=== PATIENT | female | born 1960 | race Native Hawaiian/Other Pacific Islander ===

== ENCOUNTER 2024-12-31 21:03 | Emergency (ER) | payer MEDICAID ==
[~2024-12-31] VITALS: Ht 152.4 cm; Wt 43.2 kg
[~2024-12-31 21:03] MED LIST: INSU3INS3 SQ; LOSA-381 PO; NEED-463 SQ
[2024-12-31 21:08] VITALS: TEMP 99.5
[2024-12-31 21:26] LABS: GLUCOMETER DEV NAME(LOC) ER.7; GLUCOSE,POINT OF CARE 307 MG/DL (70-110)
[2024-12-31 21:42] LABS: BASOPHILS % (AUTO) 0.5 % (0.0-2.0); EOSINOPHILS % (AUTO) 0.6 % (1.0-6.0); HEMATOCRIT 46.3 % (36-46); HEMOGLOBIN 15.5 g/dL (12.0-16.0); LYMPHOCYTES # (AUTO) 1.7 K/uL (1.0-4.8); LYMPHOCYTES % (AUTO) 19.9 % (22.0-44.0); MEAN CORPUSCULAR HGB CONC 33.5 G/dL (31.0-37.0); MEAN CORPUSCULAR VOLUME 90 fL (80-100); MONOCYTES # (AUTO) 0.4 K/uL (0.1-1.0); MONOCYTES % (AUTO) 5.1 % (2.0-9.0); NEUTROPHILS # (AUTO) 6.4 K/uL (1.8-7.7); NEUTROPHILS % (AUTO) 73.9 % (40.0-70.0); PLATELET COUNT (AUTO) 330 K/uL (150-450); RED BLOOD CELL COUNT(AUTO) 5.18 MIL/uL (4.00-5.20); RED CELL DISTRIBUTION WIDTH 13.4 % (11.5-14.5); WHITE BLOOD COUNT (AUTO) 8.6 K/uL (4.5-11.0)
[2024-12-31 21:55] LABS: ACETONE,BLOOD TRACE (NEGATIVE)
[2024-12-31 22:02] LABS: ANION GAP 10 mmol/L (8-16); CALCIUM, TOTAL 9.4 mg/dL (8.8-10.5); CARBON DIOXIDE 36 mmol/L (22-29); CHLORIDE 91 mmol/L (98-107); CREATININE 0.61 mg/dL (0.60-1.30); GLOMERULAR FILTR. RATE CALC > 60 mL/min (>60); GLUCOSE,RANDOM 352 mg/dL (70-110); LACTIC ACID 1.5 mmol/L (0.4-2.0); SODIUM SERUM 137 mmol/L (136-145); TROPONIN I-HIGH SENSITIVITY 5 ng/L (<51); UREA NITROGEN, BLOOD 16 mg/dL (7-18)
[2024-12-31 22:03] LABS: POTASSIUM 2.7 mmol/L (3.5-5.1)
[2024-12-31 22:23] LABS: ABG BASE EXCESS 10.5 mmol/L (-2.0-3.0); ABG HCO3 33.8 mmol/L (21.0-28.0); ABG METHEMOGLOBIN 0.5 % (0.0-1.5); ABG OXYGEN SATURATION 98.2 % (94.0-98.0); ABG OXYHEMOGLOBIN 96.7 % (94.0-98.0); ABG PCO2 38 mmHg (32.0-45.0); ABG TOTAL HEMOGLOBIN 15.4 G/dL (12.0-16.0); SOURCE, BLOOD GAS ARTERIAL; TEMPERATURE, FAHRENHEIT, BG 99.5 FAHREN (96.0-98.6)
[2024-12-31 22:24] LABS: ABG A-A DIFF O2 11.4 mmHg (10-20.0); ABG PH 7.557 (7.350-7.450); ALLEN TEST, BLOOD GAS POS; SITE, BLOOD GAS RT BRACHIAL
[2024-12-31] MEDS: SODIUM CHLORIDE 0.9% 1,000 ML IV ONE (22:31)
[2024-12-31] MEDS: ONDANSETRON HCL 4 MG/2 ML VIAL IVP ONE (22:32)
[2024-12-31] MEDS: INSULIN REGULAR, HUMAN 100 UNITS/ML IVP ONE (22:33)
[2024-12-31 23:12] LABS: APPEARANCE,URINE CLEAR (CLEAR); BILIRUBIN,URINE NEGATIVE (NEGATIVE); COLOR,URINE YELLOW (YELLOW); GLUCOSE, URINE (UA) >=1000 mg/dL (NEGATIVE); KETONES,URINE 80-100 mg/dL (NEGATIVE); LEUKOCYTE ESTERASE ,URINE LARGE (NEGATIVE); NITRATE,URINE NEGATIVE (NEGATIVE); OCCULT BLOOD,URINE TRACE (NEGATIVE); PROTEIN,URINE TRACE mg/dL (NEGATIVE); UROBILINOGEN,URINE <=1.0 mg/dL (<=1.0)
[2024-12-31 23:17] LABS: BACTERIA,URINE Few /HPF (None Seen); RBC,URINE 0-2 /HPF (0-2); SQUAMOUS EPITHELIAL CELL,UR Few /LPF (None Seen)
[2024-12-31] MEDS: POTASSIUM CHL 10 MEQ/WATER 50 ML IV SCH (23:26)
[2024-12-31] MEDS ORDERED: IOHEXOL 350 MG/ML 100 ML VIAL ONE (23:29)
[2024-12-31] MEDS ORDERED: SODIUM CHLORIDE 0.9% 100 ML ONE (23:29)
[2024-12-31] MEDS ORDERED: MAGNESIUM OXIDE 400 MG TABLET PO PRN (23:30)
[2024-12-31] MEDS ORDERED: MAGNESIUM SULFATE 4 GM/WATER 100 ML IV PRN (23:30)
[2024-12-31] MEDS ORDERED: MORPHINE SULFATE 2 MG/ML SYRINGE IVP PRN (23:30)
[2024-12-31] MEDS ORDERED: ZOLPIDEM TARTRATE 5 MG TABLET PO PRN (23:30)
[2024-12-31] MEDS ORDERED: ONDANSETRON HCL 4 MG/2 ML VIAL IVP PRN (23:30)
[2024-12-31] MEDS ORDERED: BISACODYL 10 MG RECTAL RECTAL SUPPOSITORY PR PRN (23:30)
[2024-12-31] MEDS ORDERED: POTASSIUM CHL 10 MEQ/WATER 50 ML IV PRN (23:30)
[2024-12-31] MEDS ORDERED: MAGNESIUM HYDROXIDE SUSPENSION 30 ML UDCUP PO PRN (23:30)
[2024-12-31] MEDS ORDERED: ACETAMINOPHEN 325 MG TABLET PO PRN (23:30)
[2024-12-31] MEDS ORDERED: POTASSIUM CHLORIDE 20 MEQ ER TABLET PO PRN (23:30)
[2024-12-31] MEDS ORDERED: ALBUTEROL SULFATE 2.5 MG/0.5 ML NEB SOLUTION NEB PRN (23:30)
[2024-12-31] MEDS ORDERED: MAGNESIUM SULFATE 2 GM/WATER 50 ML IV PRN (23:30)
[2024-12-31] MEDS ORDERED: IPRATROPIUM BROMIDE 0.5 MG/2.5 ML NEB SOLUTION NEB PRN (23:30)
[2024-12-31] MEDS ORDERED: HYDROCODONE/ACETAMINOPHEN 5-325 MG TABLET PO PRN (23:30)
[2024-12-31] MEDS ORDERED: DEXTROSE 50%-WATER 25 GM/50 ML SYRINGE IVP PRN (23:45)
[2024-12-31] MEDS ORDERED: INSULIN LISPRO 100 UNITS/ML SQ PRN (23:45)
[2025-01-01 00:21] LABS: GLUCOMETER DEV NAME(LOC) ERT.7; GLUCOSE,POINT OF CARE 279 MG/DL (70-110)
[2025-01-01] MEDS: PANTOPRAZOLE SODIUM 40 MG/VIAL IVP SCH (00:47)
[2025-01-01] MEDS: CefTRIAXone 1 GM/DEXTROSE 50 ML IV ONE (00:48)
[2025-01-01] MEDS: HEPARIN SODIUM,PORCINE 5,000 UNITS/ML VIAL SQ SCH (00:49)
[2025-01-01] MEDS: INSULIN GLARGINE,HUM.REC.ANLOG 100 UNITS/ML SQ ONE (00:55)
[2025-01-01 03:11] LABS: GLUCOMETER DEV NAME(LOC) ERT.7; GLUCOSE,POINT OF CARE 267 MG/DL (70-110)
[2025-01-01 08:49] VITALS: BP 110/75; PULSE 61; RESP 16; O2SAT 98
[2025-01-01 09:12] LABS: ALBUMIN 2.8 g/dL (3.4-5.0); BILIRUBIN,DIRECT 0.1 mg/dL (0.00-0.20); BILIRUBIN,TOTAL 0.4 mg/dL (0.1-1.0); TOTAL PROTEIN, SERUM 6.8 g/dL (6.4-8.2)
[2025-01-01] MEDS: INSULIN GLARGINE,HUM.REC.ANLOG 100 UNITS/ML SQ SCH (09:30)
[2025-01-01 09:35] LABS: GLUCOMETER DEV NAME(LOC) ERT.7; GLUCOSE,POINT OF CARE 243 MG/DL (70-110)
== END 2025-01-01 10:39 | disposition admitted as inpatient to this hospital (09) ==
LOC: EMS 21:06 → CANBEDREQ 01-01 08:23 → EMS 01-01 10:39
DX: E86.0 Dehydration (principal); E11.65 Type 2 diabetes mellitus with hyperglycemia; N39.0 Urinary tract infection, site not specified; K56.699 Other intestinal obstruction unspecified as to partial versus complete obstruction; I10 Essential (primary) hypertension; Z79.4 Long term (current) use of insulin; Z79.899 Other long term (current) drug therapy
CPT/HCPCS: 99285; 70450; 96375 ×2; 71045 ×2; 96361 ×2; 80048; 80076; 81001; 82009; 82040; 82962; 83690; 83735; 84132; 84484; 85025; 87040; 87086; 82805; 93005; 74177; 96365; 96372; 83605; 36415; Q9967; J1815 ×2; J2405; J3480 ×2; J7030; J7050; J0696; J2470; J1644; 96368